=== PATIENT | female | born 1955 | race Caucasian/White ===

== ENCOUNTER 2018-08-29 09:10 | Day surgery (SDC) | payer OTHER ==
[2018-08-29] MEDS ORDERED: LIDOCAINE 2% (SDV) 5 ML INJ (10:47)
[2018-08-29] MEDS ORDERED: PROPOFOL 60 ML (10:47)
== END 2018-08-29 11:41 | disposition home or self-care (01) ==
LOC: GIL 09:10
DX: Z12.11 Encounter for screening for malignant neoplasm of colon (principal); K64.8 Other hemorrhoids; I10 Essential (primary) hypertension; E11.9 Type 2 diabetes mellitus without complications; J45.909 Unspecified asthma, uncomplicated; E78.5 Hyperlipidemia, unspecified
CPT/HCPCS: 45378; 82962